=== PATIENT | male | born 1965 | race Two or more races ===

== ENCOUNTER → 2021-03-11 08:00 | Outpatient (CLI) | payer OTHER | END | disposition home or self-care (01) | LOC: PPH VACUNA 08:00 | DX: Z23 Encounter for immunization (principal) ==

== ENCOUNTER 2021-11-28 09:00 | Outpatient (CLI) | payer OTHER | END 2021-11-28 09:15 | disposition home or self-care (01) | LOC: PPH VACUNA 09:00 | PROVIDERS: ATTEND Emergency Medicine Pediatric Emergency Medicine | DX: Z23 Encounter for immunization (principal) ==

== ENCOUNTER 2022-01-22 06:46 | Outpatient (CLI) | payer OTHER | END 2022-01-22 16:08 | disposition home or self-care (01) | LOC: MAMO-SONO 06:46 | PROVIDERS: ATTEND Surgery | DX: N60.11 Diffuse cystic mastopathy of right breast (principal); N60.12 Diffuse cystic mastopathy of left breast ==

== ENCOUNTER 2022-01-31 11:24 | Outpatient (CLI) | payer OTHER | END 2022-01-31 11:38 | disposition home or self-care (01) | LOC: MAMO-SONO 11:24 | PROVIDERS: ATTEND Surgery | DX: N60.11 Diffuse cystic mastopathy of right breast (principal); N60.12 Diffuse cystic mastopathy of left breast ==